=== PATIENT | male | born 1960 | race Caucasian/White ===

== ENCOUNTER 2017-07-29 11:43 | Inpatient (IN) | payer OTHER ==
[2017-07-29 12:10] LABS: ADD MAN DIFF? NO
[2017-07-29 12:15] LABS: BASO % 1 % (0-3); EOS % 0 % (0-3); HEMATOCRIT 47.3 % (39.0-53.0); LYMPH # 1.9 x10^3/uL (1.0-4.8); LYMPH % 25 % (24-48); MEAN CORPUSCULAR HEMOGLOBIN 30 pg (25-35); MEAN CORPUSCULAR HGB CONC 34 g/dL (31-37); MEAN CORPUSCULAR VOLUME 89 fL (79-100); MONO # 0.6 x10^3/uL (0.0-1.1); MONO % 8 % (0-9); NEUT % 67 % (31-73); PLATELET COUNT 211 x10^3/uL (140-400); RED CELL DISTRIBUTION WIDTH 14.3 % (11.5-14.5); WHITE BLOOD COUNT 7.5 x10^3/uL (4.0-11.0)
[2017-07-29] MEDS: ASPIRIN 325 MG TABLET PO (12:18)
[2017-07-29 12:25] LABS: INR 1.1 (0.8-1.1); PROTHROMBIN TIME PATIENT 13.4 SEC (11.7-14.0)
[2017-07-29 12:28] LABS: ANION GAP 13 (6-14); BLOOD UREA NITROGEN 10 mg/dL (8-26); CALCIUM 9.6 mg/dL (8.5-10.1); CARBON DIOXIDE 26 mmol/L (21-32); CHLORIDE 100 mmol/L (98-107); CREATININE 0.8 mg/dL (0.7-1.3); GFR 98.9; GLUCOSE 109 mg/dL (70-99); POTASSIUM 4.1 mmol/L (3.5-5.1); SODIUM 139 mmol/L (136-145)
[2017-07-29 12:32] LABS: TROPONIN BY ISTAT 0.02 ng/ml (<0.08)
[2017-07-29 12:34] LABS: ALBUMIN 4.2 g/dL (3.4-5.0); ALK PHOS 86 U/L (46-116); ALT (SGPT) 35 U/L (16-63); AST (SGOT) 24 U/L (15-37); DIRECT BILIRUBIN 0.2 mg/dL (0.0-0.2); LIPASE 91 U/L (73-393); MAGNESIUM 2.2 mg/dL (1.8-2.4); TOTAL BILIRUBIN 0.7 mg/dL (0.2-1.0); TOTAL PROTEIN 7.8 g/dL (6.4-8.2)
[2017-07-29 12:36] LABS: TROPONINI < 0.017 ng/mL (0.000-0.055)
[2017-07-29 12:41] LABS: THYROID STIM HORMONE (TSH) 1.489 uIU/mL (0.358-3.74)
[2017-07-29 12:42] LABS: CKMB INDEX 0.6 % (0-4); CKMB MASS 0.8 ng/mL (0.0-3.6); CREATINE KINASE 133 U/L (39-308)
[2017-07-29 12:42] LABS: NT-PRO BNP 19 pg/mL (0-124)
[2017-07-29] MEDS ORDERED: ONDANSETRON PF 4 MG/2 ML VIAL. IV (13:45)
[2017-07-29] MEDS ORDERED: MORPHINE SULFATE 4 MG/ML DISP.SYRIN. IV (13:45)
[2017-07-29 14:01] LABS: BARBITURATES NEG (NEG); BENZODIAZEPINES NEG (NEG); CANNABINOIDS NEG (NEG); COCAINE NEG (NEG); METHADONE NEG (NEG); OPIATES NEG (NEG); PHENCYCLIDINE NEG (NEG)
[2017-07-29 14:02] LABS: AMPHETAMINE/METHAMPHETAMINE NEG (NEG); ETHANOL, URINE NEG (NEG)
[2017-07-29] MEDS ORDERED: INFLUENZA VAX SCREEN BY RX. MC (15:45)
[2017-07-29] MEDS ORDERED: PNEUMOCOCCAL VAX SCREEN BY RX. MC (15:45)
[2017-07-29 16:16] LABS: CHOLESTEROL 164 mg/dL (0-200); CHOLESTEROL/HDL RATIO 4.2; HDLC 39 mg/dL (40-60); LDLC 116 mg/dL (0-100); NON-HDL CHOLESTEROL 125 mg/dL (0-129); TRIGLYCERIDES 46 mg/dL (0-150); VLDLC 9 mg/dL (0-40)
[2017-07-29] MEDS ORDERED: ASPIRIN ENTERIC COATED 81 MG TABLET.DR. PO (16:30)
[2017-07-29 17:52] LABS: TROPONINI < 0.017 ng/mL (0.000-0.055)
[2017-07-29] MEDS: PANTOPRAZOLE 40 MG TABLET.DR. PO (18:59)
[2017-07-29 20:27] LABS: TROPONINI < 0.017 ng/mL (0.000-0.055)
[2017-07-29] MEDS: FLU VACC QS2017-18 (36MOS+)/PF 0.5 ML SYRINGE. VAX IM (21:42)
[2017-07-30 05:35] LABS: ADD MAN DIFF? NO
[2017-07-30 06:04] LABS: BASO % 1 % (0-3); EOS % 1 % (0-3); HEMATOCRIT 45.3 % (39.0-53.0); HEMOGLOBIN 15.1 g/dL (13.0-17.5); LYMPH # 1.6 x10^3/uL (1.0-4.8); LYMPH % 27 % (24-48); MEAN CORPUSCULAR HEMOGLOBIN 30 pg (25-35); MEAN CORPUSCULAR HGB CONC 33 g/dL (31-37); MEAN CORPUSCULAR VOLUME 89 fL (79-100); MONO # 0.6 x10^3/uL (0.0-1.1); MONO % 10 % (0-9); NEUT # 3.6 x10^3uL (1.8-7.7); NEUT % 62 % (31-73); PLATELET COUNT 201 x10^3/uL (140-400); RED BLOOD COUNT 5.09 x10^6/uL (4.30-5.70); RED CELL DISTRIBUTION WIDTH 13.9 % (11.5-14.5); WHITE BLOOD COUNT 5.8 x10^3/uL (4.0-11.0)
[2017-07-30 06:30] LABS: ANION GAP 8 (6-14); BLOOD UREA NITROGEN 12 mg/dL (8-26); CALCIUM 9.2 mg/dL (8.5-10.1); CARBON DIOXIDE 29 mmol/L (21-32); CHLORIDE 103 mmol/L (98-107); GFR 76.5; GLUCOSE 112 mg/dL (70-99); POTASSIUM 4.3 mmol/L (3.5-5.1); SODIUM 140 mmol/L (136-145)
[2017-07-30] MEDS: REGADENOSON 0.4 MG/5 ML DISP.SYRIN. IV (09:05)
[2017-07-30] MEDS: PANTOPRAZOLE 40 MG TABLET.DR. PO (10:00)
[2017-07-30] MEDS: ASPIRIN ENTERIC COATED 81 MG TABLET.DR. PO (10:00)
== END 2017-07-30 16:15 | disposition home or self-care (01) | DRG 313 ==
LOC: ER 11:43 → 5 NORTH 13:30
DX: R07.89 Other chest pain (principal); E66.01 Morbid (severe) obesity due to excess calories; E78.5 Hyperlipidemia, unspecified; I49.3 Ventricular premature depolarization; K21.9 Gastro-esophageal reflux disease without esophagitis; Z68.39 Body mass index [BMI] 39.0-39.9, adult; Z88.5 Allergy status to narcotic agent
CPT/HCPCS: 36415; 71045; 78452; 80048; 80061; 80076; 80307; 82553; 83690; 83735; 83880; 84443; 84484; 85025; 85610; 93005; 93017; 93306; 96374; 96375; 99285-25; A9500; J2785